=== PATIENT | female | born 1985 | race Hispanic/Latino ===

== ENCOUNTER 2017-08-26 14:13 | Emergency (ER) | payer MEDICAID ==
[2017-08-26 14:40] VITALS: BP 116/81
[2017-08-26] MEDS ORDERED: TYLENOL PO ONE (17:20)
[2017-08-26] MEDS ORDERED: DUONEB *Not for PRN Use IH ONE (17:20)
--- NOTE | 2017-08-26 17:22 | Emergency Department Report ---
Minor Respiratory - HPI Chief Complaint: Upper Respiratory Infection Stated Complaint: COUGH Time Seen by Provider: 08/26/17 16:53 Duration: 2 Days Pain Location: Chest Severity: moderate Minor Respiratory: Yes Sore Throat, Yes Able to Tolerate Fluids, Yes Cough, No Rhinorrhea, No Ear Pain, No Sick Contacts, No Hemoptysis, No Chest Pain (W COUGH ), No Shortness of Breath, No Fever ED Review of Systems ROS: Stated complaint: COUGH Other details as noted in HPI Comment: All other systems reviewed and negative Constitutional: see HPI Eyes: as per HPI ENT: as per HPI Respiratory: see HPI Cardiovascular: as per HPI Endocrine: no symptoms reported ED Past Medical Hx - Past Medical History Hx Psychiatric Treatment: Yes (HEARING VOICES) Hx Asthma: Yes Additional medical history: bipoler,schizophrenia,depression - Social History Smoking Status: Current Every Day Smoker Substance Use Type: None - Medications Home Medications: Home Medications Medication Instructions Recorded Confirmed Last Taken Type Divalproex Dr [Depakote Dr] 500 mg PO HS 05/05/14 05/05/14 Unknown History Ziprasidone [Geodon] 20 mg PO BID 05/05/14 05/05/14 Unknown History ALBUTEROL Inhaler [ProAir HFA 2 puff IH QID PRN #1 inhalation 08/26/17 Unknown Rx Inhaler] Amoxicillin 500 mg PO BID #20 capsule 08/26/17 Unknown Rx Benzonatate [Tessalon Perles] 100 mg PO Q8HR PRN #20 capsule 08/26/17 Unknown Rx Fluticasone [Flonase] 1 spray NS QDAY #1 bottle 08/26/17 Unknown Rx predniSONE [Deltasone] 20 mg PO DAILY #5 tablet 08/26/17 Unknown Rx Minor Respiratory Exam - Exam General: Vital signs noted. No distress. Alert and acting appropriately. hr 100 on exam has used inhaler HEENT: Yes Pharyngeal Erythema, Yes Moist Mucous Membranes, Yes Rhinorrhea, Yes Frontal Tenderness, Yes Maxillary Tenderness, No Pharyngeal Exudates, No Conjuctival Injection Ear: Neither TM Bulge, Neither TM Erythema, Neither EAC Pain, Neither EAC Discharge Neck: No Adenopathy, No Supple Lungs: Yes Good Air Exchange, Yes Wheezes, Yes Cough, No Ronchi, No Stridor, No Labored Respirations, No Retractions, No Use of Accessory Muscles, No Other Abnormal Lung Sounds Heart: Yes Regular, No Murmur Abdomen: Yes Normal Bowel Sounds, No Tenderness, No Peritoneal Signs Skin: No Rash, No Edema Neurologic: Alert and oriented, no deficits. Musculoskeletal: Unremarkable. ED Course Vital Signs 08/26/17 14:35 Temperature 98.3 F Pulse Rate 95 H Respiratory 18 Rate Blood Pressure 116/81 O2 Sat by Pulse 95 Oximetry - Reevaluation(s) Reevaluation #1: She presents to the emergency room with acute exacerbation of asthma. She reports a cough. No purulent sputum. Wheezing on exam. Patient was medicated. [place] better after respiratory treatment and medications. DC home with discharge planning care and primary care follow-up. On discharge neuro intact taking by mouth fluids ambulatory in no acute distress ED Medical Decision Making - Medical Decision Making see note - Differential Diagnosis asthma ae w or wo infection Critical care attestation.: If time is entered above; I have spent that time in minutes in the direct care of this critically ill patient, excluding procedure time. ED Disposition Clinical Impression: URTI (acute upper respiratory infection), Asthma with acute exacerbation Disposition: DC- TO HOME OR SELFCARE Is pt being admited?: No Does the pt Need Aspirin: No Condition: Stable Instructions: Asthma (ED) Additional Instructions: REST FLUIDS MEDS ORDERED HYDRATE WELL FOLLOW UP WITH PCP WITHIN 48 HOURS TO BE SURE YOU ARE RESPONDING WELL MOTRIN OR TYLENOL FOR PAIN OR FEVER Prescriptions: ALBUTEROL Inhaler [ProAir HFA Inhaler] 2 puff IH QID PRN #1 inhalation PRN Reason: Shortness Of Breath Amoxicillin 500 mg PO BID #20 capsule Benzonatate [Tessalon Perles] 100 mg PO Q8HR PRN #20 capsule PRN Reason: Cough Fluticasone [Flonase] 1 spray NS QDAY #1 bottle predniSONE [Deltasone] 20 mg PO DAILY #5 tablet Referrals: PRIMARY CARE, [Primary Care Provider] - 3-5 Days FRANCIA VARGAS MD [Staff Physician] - 3-5 Days Time of Disposition: 18:21
--- NOTE | 2017-08-26 17:37 | XRay Report ---
FINAL REPORT EXAM: XR CHEST ROUTINE 2V HISTORY: cough TECHNIQUE: Two view chest PA and lateral PRIORS: None. FINDINGS: Cardiac and mediastinal contours are unremarkable. No focal pulmonary infiltrate is identified. No pleural fluid collection seen. Pulmonary vasculature is unremarkable. IMPRESSION: Negative two-view chest
== END 2017-08-26 18:36 | disposition home or self-care (01) ==
LOC: ED 14:13
DX: J06.9 Acute upper respiratory infection, unspecified (principal); J45.901 Unspecified asthma with (acute) exacerbation; F17.200 Nicotine dependence, unspecified, uncomplicated
CPT/HCPCS: 71046; 87116; 87400; 87430; 94640; 96372; 99283; J2930